=== PATIENT | male | born 1975 | race Caucasian/White ===

== ENCOUNTER 2023-01-05 16:53 | Inpatient (IN) ==
--- NOTE | 2023-01-05 18:11 | XRay Report ---
XR chest 1V not portable CLINICAL HISTORY: Chest pain, nonspecific TECHNIQUE: Single frontal radiograph of the chest was obtained. Comparison: None available at the time of this dictation. FINDINGS: No lines and tubes are seen. Cardiomegaly is noted. There is prominence and cephalization of the vasc ulature with Helder B lines seen. Superimposed mild alveolar edema cannot be entirely excluded. Possi ble mild left pleural effusion. IMPRESSION: Cardiomegaly with likely moderate pulmonary edema. ACT 112: Negative or not required by law. Electronically signed by: Tye Marquez M.D. 01/05/2023 6:10 PM
[2023-01-05 18:17] LABS: Influenza A virus by PCR Negative (Neg); Influenza B virus by PCR Negative (Neg); RSV by PCR Negative (Neg); SARS CoV2 RNA(COVID-19) Ceph NEGATIVE (Negative)
[2023-01-05 18:47] LABS: Basophils # (auto) 0.06 K/uL (0.00-0.20); Basophils % (auto) 0.5 %; Eosinophils # (auto) 0.16 K/uL (0.00-0.50); Eosinophils % (auto) 1.3 %; Hematocrit (blood only) 44.6 % (42.0-52.0); Hemoglobin 15.2 g/dl (14.0-18.0); Immature Granulocytes # (auto) 0.04 K/uL (0.01-0.20); Immature Granulocytes % (auto) 0.3 %; Lymphocytes # (auto) 2.57 K/uL (1.20-3.40); Lymphocytes % (auto) 21.7 %; Mean Corpuscular Hemoglobin 29.6 pg (25.0-34.0); Mean Corpuscular Hgb Conc 34.1 g/dL (32.0-36.0); Mean Corpuscular Volume 86.8 fL (80.0-100.0); Monocytes # (auto) 0.83 K/uL (0.11-0.59); Neutrophils # (auto) 8.21 K/uL (1.40-6.50); Neutrophils % (auto) 69.2 %; Platelet Count 297 K/uL (130-400); RDW Coefficient of Variation 13.2 % (11.5-14.5); RDW Standard Deviation 41.3 fL (36.4-46.3); Red Blood Count 5.14 M/uL (4.70-6.10); White Blood Count 11.87 K/ul (4.8-10.8)
[2023-01-05 19:05] LABS: Alanine Aminotransferase 106 U/L (7-52); Albumin Level 3.7 gm/dl (3.4-5.0); Alkaline Phosphatase 53 U/L (34-104); Anion Gap 5 (3-11); Aspartate Aminotransferase 52 U/L (13-39); BUN Creatinine Ratio 20.3 (10-20); Bilirubin,Total 0.6 mg/dl (0.2-1.0); Blood Urea Nitrogen 15 mg/dl (6-23); Calcium 9.5 mg/dl (8.6-10.3); Carbon Dioxide 26 mmol/L (21-32); Chloride 108 mmol/L (98-107); Est GFR (African American) 125.5 ml/min; Est GFR (Non-African American) 108.3 ml/min; Globulin 3.8 gm/dl (2.5-4.0); Glucose 138 mg/dl (70-99(Fasting)); Potassium 4.1 mmol/L (3.5-5.1); Sodium 139 mmol/L (136-145); Total Protein 7.5 gm/dl (6.0-8.3)
[2023-01-05 19:24] LABS: Troponin I High Sensitivity 197.6 pg/ml (0-20)
[2023-01-05 19:33] LABS: INR 1.1 (0.9-1.1); Partial Thromboplastin Ratio 0.9; Partial Thromboplastin Time 26.5 Seconds (21.0-31.0); Prothrombin Time 12.1 Seconds (9.0-12.0)
--- NOTE | 2023-01-05 19:51 | Emergency Department Note ---
Impression & Plan Congestive heart failure, Hypoxia, Shortness of breath ED Provider Note NAME: MASSIMO ACEVEDO AGE: 47 SEX: M : 1975 ARRIVES VIA: Walk-In INFORMANT: Patient ED PROVIDER(S): Darien Collazo DO CHIEF COMPLAINT: shortness of breath HPI: Patient is a 47-year-old male who presents to the ER for shortness of breath. Symptoms started for the past 2 weeks. Has been gradually getting worse. He denies any cough, congestion, or any new runny nose. No belly pain, nausea, vomiting, or diarrhea. No dysuria, urgency, or frequency. Admits to previous IV drug use but now just smokes marijuana. Denies any recent trips or travel. No coughing up blood. No history of blood clots or clotting disorders. He denies any chest pain. He notes the shortness of breath is worse when he lays flat. He does admit to a history of a previously bad heart. Family at bedside notes that has been breathing like this for several days. ADDITIONAL HISTORY OBTAINED: Per HPI Chronic Medical/Social Conditions Affecting Care: Per HPI PAST MEDICAL HISTORY:See Below PAST SURGICAL HISTORY:See Below FAMILY HISTORY:See Below SOCIAL HISTORY:See Below HOME MEDICATIONS:See Below ALLERGIES:See Below VITALS:See Below PHYSICAL EXAMINATION: GENERAL: Sitting up in bed, alert, dyspneic, mild distress, agitated yelling at nursing staff complaining about the getting an IV EYE EXAM: normal conjunctiva. OROPHARYNX: no exudate, no erythema, lips, buccal mucosa, and tongue normal and mucous membranes are moist NECK: supple, no nuchal rigidity, no adenopathy, non-tender LUNGS: Clear to auscultation. Normal chest wall mechanics HEART: no murmurs, S1 normal and S2 normal ABDOMEN: abdomen soft, non-tender, normo-active bowel sounds, no masses, no rebound or guarding. UPPER EXTREMITIES: upper extremities are grossly normal. LOWER EXTREMITIES: Calves are equal bilateral NEURO EXAM: Normal sensorium, cranial nerves II-XII grossly intact, normal speech, no gross weakness of arms, no gross weakness of legs. MEDICAL DECISION MAKING: Patient is a 47-year-old male who presents ER for above-stated complaint. IV was established blood work was obtained. Labs show mild leukocytosis of 11,000. No significant anemia. INR unremarkable. BMP was unremarkable. Troponin was elevated in the mid 100s. Mild transaminitis. TSH was unremarkable. COVID flu and RSV was negative. Initially on evaluation patient was very worked up and agitated. He was a hindrance to his own care. He was given 0.5 mg of Ativan. This did help him calm down slightly. About 2 hours later I was called to bedside following the CT angio of the chest which showed bilateral pleural effusions. Nursing staff noted that he was really tired and was requiring o xygen. On my evaluation he awakens to commands but is sluggish. He still oriented to person place or time. There is concern by staff that he may be using drugs in the room. We did take his belongings at bedside and placed them in a bag. He will be monitored closely for the remainder of his time in the ER. Patient was given Lasix and remained on nasal cannula. EKGs were not consistent with a STEMI but did show ST wave changes. Will defer to the hospitalist for further work-up. Patient notes that he does have a history of cardiac issues but is not sure what they are. Again at this time patient has no chest pain. He has been short of breath for 2 weeks. External Records Reviewed: None Consults/Care Managements Discussions: Per [facility] Triage Nursing notes reviewed. Limited review of prior medical records performed Vital Signs: reviewed and remarkable for no significant abnormalities Differential diagnosis: Differential diagnoses includes but is not limited to pneumonia, bronchitis, COPD/Asthma exacerbation, pneumothorax, pulmonary embolism, congestive heart failure, acute coronary syndrome ER treatment provided: See below Diagnostics interpreted by me include EKG and cardiac monitoring as listed below: -Cardiac Monitoring: An order was placed for continuous cardiac monitoring. The monitor shows a rate of 114 with sinus rhythm. -ECG: Sinus tachycardia rate of [address] depressions and T wave inversions in the high lateral leads Poor baseline ST depressions in the lateral lead EKG #2 Sinus tachycardia rate of 112 Left axis T wave inversions in the high lateral leads and ST depressions in the lateral leads -Laboratory studies:Interpreted by me as stated above in MDM and shown below. Imaging studies: Xrays: As interpreted by me: Portable AP upright 1 view of the chest shows no focal infiltrate CTs show: CT angio chest as described above shows no PE Procedures:none Critical Care: I have personally spent 33 minutes of critical care time in the direct management of this patient. This includes bedside care, interpretation of diagnostic studies, and testing, discussion with consultants, patient, and family members, and other required patient management activities. This 33 minutes is in excess of all separately billable procedures. Past Med/Surg History Social History Smoking Status: Current every day smoker Tobacco Type: Cigarettes Preferred Language: Setswana Feels Safe at Home: Yes Allergies Allergies Allergy/AdvReac Type Severity Reaction Status Date / Time No Known Allergies Allergy Unverified 01/05/23 22:41 Home Meds Home Medications Medication Instructions Recorded Confirmed acetaminophen 500 mg tablet 1,000 mg PO Q6H PRN Pain 01/05/23 01/05/23 (Tylenol Extra Strength) cholecalciferol (vitamin D3) 25 0 mcg PO DAILY 01/05/23 01/05/23 mcg (1,000 unit) tablet (Vitamin D3) ibuprofen 200 mg tablet 400 mg PO Q6H PRN Pain 01/05/23 01/05/23 Results & Data (ED) Vital Signs Vital Signs - 24 hr 01/05/23 17:19 01/05/23 20:00 01/05/23 19:42 Temperature 36.6 C Temperature Source Temporal Artery Scan Pulse Rate 104 H 108 H 117 H Pulse Rate [Apical] Respiratory Rate 16 26 H Respiratory Effort / Characteristics Non-Labored Respiratory Depth Normal Blood Pressure 147/84 H 157/92 H Blood Pressure [Right Arm] Blood Pressure Mean 105 113 Blood Pressure Mean [Right Arm] Pulse Oximetry 96 Oxygen Delivery Method Room Air Oxygen Flow Rate Sepsis Recent Fever Within 48 Hours No Sepsis New/Unexplained Change in Mental Status No Sepsis Action Taken by Nursing No Action Required 01/05/23 22:20 01/05/23 22:22 01/05/23 22:35 Temperature Temperature Source Pulse Rate 108 H Pulse Rate [Apical] 110 H Respiratory Rate 20 Respiratory Effort / Characteristics Non-Labored Spontaneous Respiratory Depth Normal Blood Pressure 184/129 H Blood Pressure [Right Arm] 152/103 H Blood Pressure Mean Blood Pressure Mean [Right Arm] 119 Pulse Oximetry 85 L 90 Oxygen Delivery Method Room Air Nasal Cannula Oxygen Flow Rate 3 Sepsis Recent Fever Within 48 Hours Sepsis New/Unexplained Change in Mental Status Sepsis Action Taken by Nursing Laboratory Data 01/05/23 18:33 01/05/23 18:33 Lab Results 01/05/23 01/05/23 01/05/23 Range/Units 17:23 18:33 18:33 WBC 11.87 H (4.8-10.8) K/ul RBC 5.14 (4.70-6.10) M/uL Hgb 15.2 (14.0-18.0) g/dl Hct 44.6 (42.0-52.0) % MCV 86.8 (80.0-100.0) fL MCH 29.6 (25.0-34.0) pg MCHC 34.1 (32.0-36.0) g/dL RDW Std Deviation 41.3 (36.4-46.3) fL RDW Coeff of Gil 13.2 (11.5-14.5) % Plt Count 297 (130-400) K/uL MPV 11.0 (9.4-12.4) fL Immature Gran % (Auto) 0.3 % Neut % (Auto) 69.2 % Lymph % (Auto) 21.7 % [place] % (Auto) 7.0 % Eos % (Auto) 1.3 % Baso % (Auto) 0.5 % Neut # (Auto) 8.21 H (1.40-6.50) K/uL Lymph # (Auto) 2.57 (1.20-3.40) K/uL [place] # (Auto) 0.83 H (0.11-0.59) K/uL Eos # (Auto) 0.16 (0.00-0.50) K/uL Baso # (Auto) 0.06 (0.00-0.20) K/uL Immature Gran # (Auto) 0.04 (0.01-0.20) K/uL PT 12.1 H (9.0-12.0) Seconds INR 1.1 (0.9-1.1) APTT 26.5 (21.0-31.0) Seconds PTT Ratio 0.9 ABG pH (7.35-7.45) ABG pCO2 (35-46) mmHg ABG pO2 (80-95) mmHg ABG HCO3 (19-24) mmol/L ABG O2 Saturation (90-95) % ABG Base Excess (-9-1.8) mEq/L Jacob Test (Pos) Oxygen Given Sodium (136-145) mmol/L Potassium (3.5-5.1) mmol/L Chloride (98-107) mmol/L Carbon Dioxide (21-32) mmol/L Anion Gap (3-11) BUN (6-23) mg/dl Creatinine (0.6-1.4) mg/dl Est Cr Clr Drug Dosing Est GFR ( Amer) ml/min Est GFR (Non-Af Amer) ml/min BUN/Creatinine Ratio (10-20) Glucose (70-99(Fasting)) mg/dl Calcium (8.6-10.3) mg/dl Magnesium (1.7-2.4) mg/dl Total Bilirubin (0.2-1.0) mg/dl AST (13-39) U/L ALT (7-52) U/L Alkaline Phosphatase (34-104) U/L Troponin I High Sens (0-20) pg/ml B-Natriuretic Peptide (0-100) pg/ml Total Protein (6.0-8.3) gm/dl Albumin (3.4-5.0) gm/dl Globulin (2.5-4.0) gm/dl Albumin/Globulin Ratio (0.9-2) TSH (0.300-4.500) uIu/ml SARS-CoV-2 (PCR) NEGATIVE (Negative) Influenza Type A (PCR) Negative (Neg) Influenza Type B (PCR) Negative (Neg) RSV (RT-PCR) Negative (Neg) 01/05/23 01/05/23 01/05/23 Range/Units 18:33 18:33 18:33 WBC (4.8-10.8) K/ul RBC (4.70-6.10) M/uL Hgb (14.0-18.0) g/dl Hct (42.0-52.0) % MCV (80.0-100.0) fL MCH (25.0-34.0) pg MCHC (32.0-36.0) g/dL RDW Std Deviation (36.4-46.3) fL RDW Coeff of Gil (11.5-14.5) % Plt Count (130-400) K/uL MPV (9.4-12.4) fL Immature Gran % (Auto) % Neut % (Auto) % Lymph % (Auto) % [place] % (Auto) % Eos % (Auto) % Baso % (Auto) % Neut # (Auto) (1.40-6.50) K/uL Lymph # (Auto) (1.20-3.40) K/uL [place] # (Auto) (0.11-0.59) K/uL Eos # (Auto) (0.00-0.50) K/uL Baso # (Auto) (0.00-0.20) K/uL Immature Gran # (Auto) (0.01-0.20) K/uL PT (9.0-12.0) Seconds INR (0.9-1.1) APTT (21.0-31.0) Seconds PTT Ratio ABG pH (7.35-7.45) ABG pCO2 (35-46) mmHg ABG pO2 (80-95) mmHg ABG HCO3 (19-24) mmol/L ABG O2 Saturation (90-95) % ABG Base Excess (-9-1.8) mEq/L Jacob Test (Pos) Oxygen Given Sodium 139 (136-145) mmol/L Potassium 4.1 (3.5-5.1) mmol/L Chloride 108 H (98-107) mmol/L Carbon Dioxide 26 (21-32) mmol/L Anion Gap 5 (3-11) BUN 15 (6-23) mg/dl Creatinine 0.74 (0.6-1.4) mg/dl Est Cr Clr Drug Dosing Not Reportable Est GFR ( Amer) 125.5 ml/min Est GFR (Non-Af Amer) 108.3 ml/min BUN/Creatinine Ratio 20.3 H (10-20) Glucose 138 H (70-99(Fasting)) mg/dl Calcium 9.5 (8.6-10.3) mg/dl Magnesium 1.9 (1.7-2.4) mg/dl Total Bilirubin 0.6 (0.2-1.0) mg/dl AST 52 H (13-39) U/L ALT 106 H (7-52) U/L Alkaline Phosphatase 53 (34-104) U/L Troponin I High Sens 197.6 H* (0-20) pg/ml B-Natriuretic Peptide 1585 H (0-100) pg/ml Total Protein 7.5 (6.0-8.3) gm/dl Albumin 3.7 (3.4-5.0) gm/dl Globulin 3.8 (2.5-4.0) gm/dl Albumin/Globulin Ratio 1.0 (0.9-2) TSH 1.339 (0.300-4.500) uIu/ml SARS-CoV-2 (PCR) (Negative) Influenza Type A (PCR) (Neg) Influenza Type B (PCR) (Neg) RSV (RT-PCR) (Neg) 01/05/23 01/05/23 Range/Units 19:55 22:42 WBC (4.8-10.8) K/ul RBC (4.70-6.10) M/uL Hgb (14.0-18.0) g/dl Hct (42.0-52.0) % MCV (80.0-100.0) fL MCH (25.0-34.0) pg MCHC (32.0-36.0) g/dL RDW Std Deviation (36.4-46.3) fL RDW Coeff of Gil (11.5-14.5) % Plt Count (130-400) K/uL MPV (9.4-12.4) fL Immature Gran % (Auto) % Neut % (Auto) % Lymph % (Auto) % [place] % (Auto) % Eos % (Auto) % Baso % (Auto) % Neut # (Auto) (1.40-6.50) K/uL Lymph # (Auto) (1.20-3.40) K/uL [place] # (Auto) (0.11-0.59) K/uL Eos # (Auto) (0.00-0.50) K/uL Baso # (Auto) (0.00-0.20) K/uL Immature Gran # (Auto) (0.01-0.20) K/uL PT (9.0-12.0) Seconds INR (0.9-1.1) APTT (21.0-31.0) Seconds PTT Ratio ABG pH 7.43 (7.35-7.45) ABG pCO2 35 (35-46) mmHg ABG pO2 86 (80-95) mmHg ABG HCO3 23 (19-24) mmol/L ABG O2 Saturation 98.2 H (90-95) % ABG Base Excess -0.6 (-9-1.8) mEq/L Jacob Test Pos (Pos) Oxygen Given RA Sodium (136-145) mmol/L Potassium (3.5-5.1) mmol/L Chloride (98-107) mmol/L Carbon Dioxide (21-32) mmol/L Anion Gap (3-11) BUN (6-23) mg/dl Creatinine (0.6-1.4) mg/dl Est Cr Clr Drug Dosing Est GFR ( Amer) ml/min Est GFR (Non-Af Amer) ml/min BUN/Creatinine Ratio (10-20) Glucose (70-99(Fasting)) mg/dl Calcium (8.6-10.3) mg/dl Magnesium (1.7-2.4) mg/dl Total Bilirubin (0.2-1.0) mg/dl AST (13-39) U/L ALT (7-52) U/L Alkaline Phosphatase (34-104) U/L Troponin I High Sens 179.5 H* (0-20) pg/ml B-Natriuretic Peptide (0-100) pg/ml Total Protein (6.0-8.3) gm/dl Albumin (3.4-5.0) gm/dl Globulin (2.5-4.0) gm/dl Albumin/Globulin Ratio (0.9-2) TSH (0.300-4.500) uIu/ml SARS-CoV-2 (PCR) (Negative) Influenza Type A (PCR) (Neg) Influenza Type B (PCR) (Neg) RSV (RT-PCR) (Neg) Administered Medications Miscellaneous (Patient's Height &/Or Weight Needed) 1 each N/A Q2H AAMIR Stop: 02/04/23 21:59 Last Admin: 01/05/23 22:43 Dose: 1 each Documented By: MARGARET Discontinued Medications Aspirin (Aspirin Chew 324 Mg) 324 mg PO NOW STA Stop: 01/05/23 21:29 Last Admin: 01/05/23 22:39 Dose: 324 mg Documented By: MARGARET Furosemide (Furosemide 40 Mg/4 Ml Vial) 40 mg IV NOW STA Stop: 01/05/23 21:29 Last Admin: 01/05/23 22:37 Dose: 40 mg Documented By: MARGARET Ioversol (Optiray 320 500ml) 113 ml IV ONCE ONE Stop: 01/05/23 20:44 Last Admin: 01/05/23 20:43 Dose: 113 ml Documented By: BAMBI Lorazepam (Lorazepam 2 Mg/1 Ml Vial) 0.5 mg IV NOW STA Stop: 01/05/23 20:06 Last Admin: 01/05/23 20:09 Dose: 0.5 mg Documented By: MARGARET Metoprolol Tartrate (Metoprolol Tartrate 1 Mg/Ml Vial) 2.5 mg IV NOW STA Stop: 01/05/23 21:51 Last Admin: 01/05/23 22:35 Dose: 2.5 mg Documented By: MARGARET Miscellaneous Information (Patient's Allergy Info Needs Entered) 1 each N/A Q30M AAMIR Stop: 02/04/23 21:59 Last Admin: 01/05/23 22:43 Dose: 1 each Documented By: MARGARET Imaging Data Radiologist's Impression: Chest X-Ray 01/05/23 17:22 XR chest 1V not portable CLINICAL HISTORY: Chest pain, nonspecific TECHNIQUE: Single frontal radiograph of the chest was obtained. Comparison: None available at the time of this dictation. FINDINGS: No lines and tubes are seen. Cardiomegaly is noted. There is prominence and cephalization of the vasculature with Helder B lines seen. Superimposed mild alveolar edema cannot be entirely excluded. Possible mild left pleural effusion. IMPRESSION: Cardiomegaly with likely moderate pulmonary edema. ACT 112: Negative or not required by law. Electronically signed by: Tye Marquez M.D. 01/05/2023 6:10 PM Chest CTA 01/05/23 19:48 Exam(s): CTA CHEST IV Amt: 113ML OPTIRAY 320 EXAM: CT Angiography Chest With Intravenous Contrast CLINICAL HISTORY: Reason for exam: PE. TECHNIQUE: Axial computed tomographic angiography images of the chest with intravenous contrast. CTDI is 37 mGy and DLP is 919.12 mGy-cm. Automated exposure control was utilized for the study. A dose lowering technique was utilized adhering to the principles of ALARA. MIP reconstructed images were created and reviewed. COMPARISON: No relevant prior studies available. FINDINGS: Pulmonary arteries: Unremarkable. No acute pulmonary embolism. Aorta: Atherosclerotic changes of the aorta. No thoracic aortic aneurysm. Lungs: See below. Pleural space: Small RIGHT and trace LEFT pleural effusions. Mild pulmonary edema. Cardiomegaly. Findings are consistent with congestive heart failure. No pneumothorax. Heart: See above. Mediastinum: Prominent mediastinal and hilar lymphadenopathy which is limited in evaluation due to lack of contrast. If there is any history of malignancy, consider PET/CT scan for further evaluation. Bones/joints: Degenerative changes of the spine. No acute fracture. No dislocation. Soft tissues: Unremarkable. Lymph nodes: Unremarkable. No enlarged lymph nodes. IMPRESSION: 1. No acute pulmonary embolism. 2. Small RIGHT and trace LEFT pleural effusions. Mild pulmonary edema. Cardiomegaly. Findings are consistent with congestive heart failure. 3. Prominent mediastinal and hilar lymphadenopathy which is limited in evaluation due to lack of contrast. If there is any history of malignancy, consider PET/CT scan for further evaluation. Electronically signed by: Ghanshyam Amin MD 01/05/23 21:15 PM Discharge Plan Visit Data Chief Complaint: Shortness of Breath/Dyspnea Stated Complaint: SOB ED Provider: Darien Collazo Discharge Problem: Congestive heart failure, Hypoxia, Shortness of breath Forms Stand Alone Forms: [employer] games Prescriptions Prescriptions: No Action acetaminophen [Tylenol Extra Strength] 500 mg Tablet 1,000 mg PO Q6H PRN (Reason: Pain) ibuprofen 200 mg Tablet 400 mg PO Q6H PRN (Reason: Pain) cholecalciferol (vitamin D3) [Vitamin D3] 25 mcg (1,000 unit) Tablet 0 mcg PO DAILY Referrals Referrals: PCP,NO [Primary Care Provider] -
[2023-01-05] MEDS ORDERED: LORazepam 2 MG/1 ML VIAL IV STA ×3 (20:05→23:12)
[2023-01-05] MEDS ORDERED: OPTIRAY 320 500ml IV ONE (20:43)
[2023-01-05 21:04] LABS: Troponin I High Sensitivity 179.5 pg/ml (0-20)
--- NOTE | 2023-01-05 21:16 | CT Scan Report ---
Exam(s): CTA CHEST IV Amt: 113ML OPTIRAY 320 EXAM: CT Angiography Chest With Intravenous Contrast CLINICAL HISTORY: Reason for exam: PE. TECHNIQUE: Axial computed tomographic angiography images of the chest with intravenous contrast. CTDI is 37 mGy and DLP is 919.12 mGy-cm. Automated exposure control was utilized for the study. A dose lowering technique was utilized adhering to the principles of ALARA. MIP reconstructed images were created and reviewed. COMPARISON: No relevant prior studies available. FINDINGS: Pulmonary arteries: Unremarkable. No acute pulmonary embolism. Aorta: Atherosclerotic changes of the aorta. No thoracic aortic aneurysm. Lungs: See below. Pleural space: Small RIGHT and trace LEFT pleural effusions. Mild pulmonary edema. Cardiomegaly. Findings are consistent with congestive heart failure. No pneumothorax. Heart: See above. Mediastinum: Prominent mediastinal and hilar lymphadenopathy which is limited in evaluation due to lack of contrast. If there is any history of malignancy, consider PET/CT scan for further evaluation. Bones/joints: Degenerative changes of the spine. No acute fracture. No dislocation. Soft tissues: Unremarkable. Lymph nodes: Unremarkable. No enlarged lymph nodes. IMPRESSION: 1. No acute pulmonary embolism. 2. Small RIGHT and trace LEFT pleural effusions. Mild pulmonary edema. Cardiomegaly. Findings are consistent with congestive heart failure. 3. Prominent mediastinal and hilar lymphadenopathy which is limited in evaluation due to lack of contrast. If there is any history of malignancy, consider PET/CT scan for further evaluation. Electronically signed by: Ghanshyam Amin MD 01/05/23 21:15 PM
[2023-01-05] MEDS ORDERED: FUROSEMIDE 40 MG/4 ML VIAL IV STA (21:28)
[2023-01-05] MEDS ORDERED: ASPIRIN CHEW 324 MG PO STA (21:28)
[2023-01-05] MEDS ORDERED: XOPENEX/ATROVENT 1.25mg/0.5MG NEB COMBO NEB STA (21:50)
[2023-01-05] MEDS ORDERED: METOPROLOL TARTRATE 1 MG/ML VIAL IV STA (21:50)
[2023-01-05] MEDS ORDERED: IPRATROPIUM BROMIDE NEB SOLN 0.02% 2.5 ML VIAL INH STA (21:51)
[2023-01-05] MEDS ORDERED: LEVALBUTEROL 1.25 MG/3 ML NEB NEB STA (21:51)
[2023-01-05] MEDS ORDERED: Patient's ALLERGY Info needs ENTERED SCH (22:00)
[2023-01-05 22:23] LABS: Magnesium 1.9 mg/dl (1.7-2.4)
[2023-01-05 22:38] LABS: Thyroid Stimulating Hormone 1.339 uIu/ml (0.300-4.500)
[2023-01-05] MEDS: Patient's HEIGHT &/or WEIGHT Needed SCH (22:43)
[2023-01-05 22:47] LABS: Base Excess ABG -0.6 mEq/L (-9-1.8); HCO3 ABG 23 mmol/L (19-24); Oxygen Saturation ABG 98.2 % (90-95); PCO2 ABG 35 mmHg (35-46); PO2 ABG 86 mmHg (80-95); pH ABG 7.43 (7.35-7.45)
[2023-01-05 22:53] LABS: Allen Test Pos (Pos)
[2023-01-05] MEDS ORDERED: DOXYCYCLINE HYCLATE 100 MG in DEXTROSE 5% MINI-B 100 ML IV STA (23:12)
--- NOTE | 2023-01-05 23:14 | History & Physical Report ---
Date of Service January 05, 2023 Assessment & Plan (1) Acute hypoxemic respiratory failure: Plan: Multifactorial New onset heart failure Complicated bronchitis, possible sepsis HTN, likely chronic BP elevation given cardiomegaly on imaging Abnormal LFTs possibly from passive hepatic congestion rule out other abnormalities given patient abdominal pain complaints congenital heart disease status post surgery anxiety disorder, suboptimal, patient not on maintenance medications LUE osteomyelitis status post antibiotic Rx, patient unable to give details Hyperglycemia rule out DM ongoing tobacco abuse PCU Supplemental O2 Baseline ABG Diuretic Rx Strict I/Os, daily weights, CHF education CS, Doxycycline, nebs for complicated bronchitis Initiate low-dose steroid course if oxygenation does not improve Initiate beta-jesús for BP control and CHF TTE, Cardiology consult Re: CHF Follow LFTs, CT abdomen pelvis, check UA Check hemoglobin A1c Nicotine patch DVT prophylaxis. Lovenox subcu Full code Total critical care time was 40 minutes. Text document was generated using [employer] voice recognition software. It may contain grammatical or spelling errors. Kindly contact undersigned for clarification of any documentation item in question. History of Present Illness Chief Complaint: Shortness of breath Primary Care Provider: NO PCP History obtained from patient and records. Medical history significant for congenital heart disease status post surgery, anxiety disorder, LUE osteomyelitis status post antibiotic Rx, ongoing tobacco abuse. 2 weeks history of shortness of breath, fluid retention, orthopnea symptoms. Junky cough symptoms. Not sure about sick contacts, has not received COVID-19 vaccination. Denies aspiration. Chest pain from pounding on his chest. Achy abdominal pain without constipation/diarrhea symptoms. Denies recent EtOH intake Denies headache symptoms. IV Lasix administered at the ER for CHF. Lowest O2 sats of 85 on room air documented at the ER. 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 Allergies Allergy/AdvReac Type Severity Reaction Status Date / Time No Known Allergies Allergy Unverified 01/05/23 22:41 Home Medications Medication Instructions Recorded Confirmed Type acetaminophen 500 mg tablet 1,000 mg PO Q6H PRN Pain 01/05/23 01/05/23 History (Tylenol Extra Strength) cholecalciferol (vitamin D3) 25 0 mcg PO DAILY 01/05/23 01/05/23 History mcg (1,000 unit) tablet (Vitamin D3) ibuprofen 200 mg tablet 400 mg PO Q6H PRN Pain 01/05/23 01/05/23 History Past Med/Surg History Social History Smoking Status: Current every day smoker Tobacco Type: E-cigarettes / Vaping Hx Alcohol Use: No Hx Substance Use: Yes Last Used Substance: Days (ago) Preferred Language: Khmer Communication Ability: Effective Cupola Man Required: No Beliefs That Will Affect Care: None Current Living Situation: Other Current Living Situation Comment: friend arie and her mother ' they are very nice to me' Other Information That Helps Us Care for You: No Feels Safe at Home: Yes Safety Concerns: Feels Safe At This Time Assistive Devices: None Review of Systems Review of Systems: As per HPI, all other systems reviewed and negative Physical Exam Physical Exam: GENERAL: uncomfortable, anxious, looks older than stated age, respiratory distress SKIN: Normal color, warm HEENT: [place] palpebral conjunctivae, no ptosis, dry buccal mucosa, nasal cannula in place NECK : Supple, JVD noted, no tenderness CHEST : Decreased breath sounds, no tenderness HEART : Tachycardic, systolic murmur ABDOMEN: Some distention, nontender EXTREMITIES : Minimal LE swelling, no LE tenderness, no other conspicuous deformities noted NEUROLOGIC : Coherent, no facial asymmetry, no other gross focality Results & Data Results & Data Vital Signs (Past 12 Hours) Vital Signs Temp Pulse Pulse Resp BP BP Pulse Ox 01/05/23 22:35 108 H 184/129 H 01/05/23 22:22 90 01/05/23 22:20 110 H 20 152/103 H 85 L 01/05/23 19:42 117 H 01/05/23 20:00 108 H 26 H 157/92 H 01/05/23 17:19 36.6 C 104 H 16 147/84 H 96 O2 Del Method O2 Flow Rate 01/05/23 22:35 01/05/23 22:22 Nasal Cannula 3 01/05/23 22:20 Room Air 01/05/23 19:42 01/05/23 20:00 01/05/23 17:19 Room Air Laboratory Results Laboratory Results WBC 11.87 K/ul (4.8-10.8) H 01/05/23 18:33 RBC 5.14 M/uL (4.70-6.10) 01/05/23 18:33 Hgb 15.2 g/dl (14.0-18.0) 01/05/23 18: Hct 44.6 % (42.0-52.0) 01/05/23 18: MCV 86.8 fL (80.0-100.0) 01/05/23 18: MCH 29.6 pg (25.0-34.0) 01/05/23 18: MCHC 34.1 g/dL (32.0-36.0) 01/05/23 18: RDW Std Deviation 41.3 fL (36.4-46.3) 01/05/23 18: RDW Coeff of Gil 13.2 % (11.5-14.5) 01/05/23 18: Plt Count 297 K/uL (130-400) 01/05/23 18: MPV 11.0 fL (9.4-12.4) 01/05/23 18: Immature Gran % (Auto) 0.3 % 01/05/23 18: Neut % (Auto) 69.2 % 01/05/23 18: Lymph % (Auto) 21.7 % 01/05/23 18: [place] % (Auto) 7.0 % 01/05/23 18: Eos % (Auto) 1.3 % 01/05/23 18: Baso % (Auto) 0.5 % 01/05/23 18:33 Neut # (Auto) 8.21 K/uL (1.40-6.50) H 01/05/23 18: Lymph # (Auto) 2.57 K/uL (1.20-3.40) 01/05/23 18: [place] # (Auto) 0.83 K/uL (0.11-0.59) H 01/05/23 18: Eos # (Auto) 0.16 K/uL (0.00-0.50) 01/05/23 18: Baso # (Auto) 0.06 K/uL (0.00-0.20) 01/05/23 18: Immature Gran # (Auto) 0.04 K/uL (0.01-0.20) 01/05/23 18: PT 12.1 Seconds (9.0-12.0) H 01/05/23 18:33 INR 1.1 (0.9-1.1) 01/05/23 18:33 APTT 26.5 Seconds (21.0-31.0) 01/05/23 18:33 PTT Ratio 0.9 01/05/23 18:33 ABG pH 7.43 (7.35-7.45) 01/05/23 22:42 ABG pCO2 35 mmHg (35-46) 01/05/23 22:42 ABG pO2 86 mmHg (80-95) 01/05/23 22:42 ABG HCO3 23 mmol/L (19-24) 01/05/23 22:42 ABG O2 Saturation 98.2 % (90-95) H 01/05/23 22:42 ABG Base Excess -0.6 mEq/L (-9-1.8) 01/05/23 22:42 Jacob Test Pos (Pos) 01/05/23 22:42 Oxygen Given RA 01/05/23 22:42 Sodium 139 mmol/L (136-145) 01/05/23 18:33 Potassium 4.1 mmol/L (3.5-5.1) 01/05/23 18:33 Chloride 108 mmol/L (98-107) H 01/05/23 18:33 Carbon Dioxide 26 mmol/L (21-32) 01/05/23 18:33 Anion Gap 5 (3-11) 01/05/23 18:33 BUN 15 mg/dl (6-23) 01/05/23 18:33 Creatinine 0.74 mg/dl (0.6-1.4) 01/05/23 18:33 Est Cr Clr Drug Dosing Not Reportable 01/05/23 18:33 Est GFR ( Amer) 125.5 ml/min 01/05/23 18:33 Est GFR (Non-Af Amer) 108.3 ml/min 01/05/23 18:33 BUN/Creatinine Ratio 20.3 (10-20) H 01/05/23 18:33 Glucose 138 mg/dl (70-99(Fasting)) H 01/05/23 18:33 Calcium 9.5 mg/dl (8.6-10.3) 01/05/23 18:33 Magnesium 1.9 mg/dl (1.7-2.4) 01/05/23 18:33 Total Bilirubin 0.6 mg/dl (0.2-1.0) 01/05/23 18:33 AST 52 U/L (13-39) H 01/05/23 18:33 ALT 106 U/L (7-52) H 01/05/23 18:33 Alkaline Phosphatase 53 U/L (34-104) 01/05/23 18:33 Troponin I High Sens 179.5 pg/ml (0-20) H* 01/05/23 19:55 B-Natriuretic Peptide 1585 pg/ml (0-100) H 01/05/23 18:33 Total Protein 7.5 gm/dl (6.0-8.3) 01/05/23 18:33 Albumin 3.7 gm/dl (3.4-5.0) 01/05/23 18:33 Globulin 3.8 gm/dl (2.5-4.0) 01/05/23 18:33 Albumin/Globulin Ratio 1.0 (0.9-2) 01/05/23 18:33 TSH 1.339 uIu/ml (0.300-4.500) 01/05/23 18:33 SARS-CoV-2 (PCR) NEGATIVE (Negative) 01/05/23 17:23 Influenza Type A (PCR) Negative (Neg) 01/05/23 17:23 Influenza Type B (PCR) Negative (Neg) 01/05/23 17:23 RSV (RT-PCR) Negative (Neg) 01/05/23 17:23 Impressions Chest X-Ray 01/05/23 17:22 XR chest 1V not portable CLINICAL HISTORY: Chest pain, nonspecific TECHNIQUE: Single frontal radiograph of the chest was obtained. Comparison: None available at the time of this dictation. FINDINGS: No lines and tubes are seen. Cardiomegaly is noted. There is prominence and cephalization of the vasculature with Helder B lines seen. Superimposed mild alveolar edema cannot be entirely excluded. Possible mild left pleural effusion. IMPRESSION: Cardiomegaly with likely moderate pulmonary edema. ACT 112: Negative or not required by law. Electronically signed by: Tye Marquez M.D. 01/05/2023 6:10 PM Chest CTA 01/05/23 19:48 Exam(s): CTA CHEST IV Amt: 113ML OPTIRAY 320 EXAM: CT Angiography Chest With Intravenous Contrast CLINICAL HISTORY: Reason for exam: PE. TECHNIQUE: Axial computed tomographic angiography images of the chest with intravenous contrast. CTDI is 37 mGy and DLP is 919.12 mGy-cm. Automated exposure control was utilized for the study. A dose lowering technique was utilized adhering to the principles of ALARA. MIP reconstructed images were created and reviewed. COMPARISON: No relevant prior studies available. FINDINGS: Pulmonary arteries: Unremarkable. No acute pulmonary embolism. Aorta: Atherosclerotic changes of the aorta. No thoracic aortic aneurysm. Lungs: See below. Pleural space: Small RIGHT and trace LEFT pleural effusions. Mild pulmonary edema. Cardiomegaly. Findings are consistent with congestive heart failure. No pneumothorax. Heart: See above. Mediastinum: Prominent mediastinal and hilar lymphadenopathy which is limited in evaluation due to lack of contrast. If there is any history of malignancy, consider PET/CT scan for further evaluation. Bones/joints: Degenerative changes of the spine. No acute fracture. No dislocation. Soft tissues: Unremarkable. Lymph nodes: Unremarkable. No enlarged lymph nodes. IMPRESSION: 1. No acute pulmonary embolism. 2. Small RIGHT and trace LEFT pleural effusions. Mild pulmonary edema. Cardiomegaly. Findings are consistent with congestive heart failure. 3. Prominent mediastinal and hilar lymphadenopathy which is limited in evaluation due to lack of contrast. If there is any history of malignancy, consider PET/CT scan for further evaluation. Electronically signed by: Ghanshyam Amin MD 01/05/23 21:15 PM Diagnostic Findings EKG as per my interpretation : Rate 110, sinus tachycardia, LAD, LAFB, LVH T wave inversion lateral leads
[2023-01-05] MEDS ORDERED: NICOTINE 21 MG/24 HR TDSY TD STA (23:16)
[2023-01-05] MEDS ORDERED: hydrOXYzine HCl 10 MG TAB PO PRN (23:20)
[2023-01-05] MEDS ORDERED: PROMETHAZINE HCL 6.25 MG in SODIUM CHLORIDE 0.9% 50 ML IV PRN (23:20)
[2023-01-05] MEDS ORDERED: ACETAMINOPHEN 500 MG TAB PO PRN (23:20)
[2023-01-05] MEDS ORDERED: oxyCODONE HCL IR 5 MG TAB (IMMEDIATE RELEASE) PO PRN (23:20)
[2023-01-05 23:52] LABS: Appearance Urine Clear (Clear); Bilirubin Urine Negative (Negative); Blood Urine Negative (Negative); Color Urine Yellow; Glucose Urine UA Negative (Negative); Ketones Urine Negative (Negative); Leukocyte Esterase Urine Negative (Negative); Nitrite Urine Negative (Negative); Protein Urine Negative (Negative); Specific Gravity Urine 1.024 (1.000-1.030); Urobilinogen Urine Negative (Negative); pH Urine 5.5 (4.5-7.5)
[2023-01-06 00:22] LABS: Amphetamines+Metham, Urine Neg (Neg); Barbiturates, Urine Neg (Neg); Benzodiazepine, Urine Neg (Neg); Cocaine, Urine Neg (Neg); MDMA (Ecstacy), Urine Neg (Neg); Methadone, Urine Neg (Neg); Opiate, Urine Neg (Neg); Phencyclidine, Urine Neg (Neg)
[2023-01-06] MEDS: Patient's HEIGHT &/or WEIGHT Needed SCH (01:18)
[2023-01-06] MEDS ORDERED: NITROGLYCERIN SL 0.4 MG/TAB TAB SL PRN (02:02)
[2023-01-06] MEDS ORDERED: MAGNESIUM SULFATE / D5W 1 GM/100 ML BAG IV ONE (02:22)
[2023-01-06 04:43] LABS: Basophils # (auto) 0.07 K/uL (0.00-0.20); Basophils % (auto) 0.5 %; Eosinophils # (auto) 0.18 K/uL (0.00-0.50); Eosinophils % (auto) 1.3 %; Hematocrit (blood only) 45.6 % (42.0-52.0); Hemoglobin 15.7 g/dl (14.0-18.0); Immature Granulocytes # (auto) 0.07 K/uL (0.01-0.20); Immature Granulocytes % (auto) 0.5 %; Lymphocytes # (auto) 3.03 K/uL (1.20-3.40); Lymphocytes % (auto) 22.2 %; Mean Corpuscular Hemoglobin 29.6 pg (25.0-34.0); Mean Corpuscular Hgb Conc 34.4 g/dL (32.0-36.0); Mean Corpuscular Volume 85.9 fL (80.0-100.0); Mean Platelet Volume 10.8 fL (9.4-12.4); Monocytes # (auto) 0.85 K/uL (0.11-0.59); Monocytes % (auto) 6.2 %; Neutrophils # (auto) 9.46 K/uL (1.40-6.50); Neutrophils % (auto) 69.3 %; Platelet Count 308 K/uL (130-400); RDW Coefficient of Variation 13.3 % (11.5-14.5); RDW Standard Deviation 41.1 fL (36.4-46.3); Red Blood Count 5.31 M/uL (4.70-6.10); White Blood Count 13.66 K/ul (4.8-10.8)
[2023-01-06 05:00] LABS: Albumin Level 3.9 gm/dl (3.4-5.0); BUN Creatinine Ratio 24.6 (10-20); Bilirubin,Total 0.8 mg/dl (0.2-1.0); Calcium 9.3 mg/dl (8.6-10.3); Creatinine Clr Calc Pharmacy 153.3 ml/min; Est GFR (African American) 135.9 ml/min; Est GFR (Non-African American) 117.3 ml/min; Potassium 3.8 mmol/L (3.5-5.1); Total Protein 7.9 gm/dl (6.0-8.3)
[2023-01-06 07:43] LABS: Estimated Average Glucose 128 mg/dl; Hemoglobin A1C 6.1 % (4.5-5.6)
--- NOTE | 2023-01-06 08:32 | Cardiology Consultation ---
Date of Consultation January 06, 2023 Assessment & Plan (1) Congestive heart failure: (2) Acute hypoxemic respiratory failure: (3) Acute on chronic heart failure with reduced ejection fraction and diastolic dysfunction: Plan Patient seen/examined today in collaboration with Dr. Hendrix. See supervising physician's documentation for recommendations and plan of care. Supervising Physician Co-Signing Physician Notes Pt seen and examined with [facility] staff Concur with observations and plans 47 yo man presenting with dyspnea + cough x 2 weeks Dx: respiratory failure + Hypoxia * Hx of congenital heart disease s/p surgery * Anatomy - unknown * COVID negative * Flu negative * No outpatient meds * Chronic smoking * Troponin - elevated * BNP 1585 * CXR - cardiomegaly - no sternal wires - no hardware noted - pulmonary vascular congestion c/w CHF * CT: personally reviewed - + apical bullae, ground glass c/w CHF. No PE. No clear infiltrates Plans: * Pt is in acute decompensated CHF * Air hunger noted * Elevated JVP * ECHOcardiogram - reviewed - severely reduced LVEF - LVEF <20%; Significant MR. + AI (making IABP challenging). * LV with deep crypts - concern for LV noncompaction. Formal read is pending * Plans for BiPAP * Plans for Lasix 200 mg IV x 1 * Check Lactate * [facility] * Patient may require mechanical circulatory support * Transfer to critical care team Chuy Hendrix History of Present Illness Reason for Consultation: SOB; Possible CHF Requesting Physician: Dr. Barnett Attending Physician: Dr. Hendrix History of Present Illness Patient is a 47 year old male who presented to ER with complaints of SOB x2 weeks with cough. Found to be hypoxic in ER with b/l pleural effusions. Records reviewed. History of congenital heart disease s/p surgery (specifics unknown), anxiety, history of LUE osteomyelitis s/p antibiotic tx, tobacco abuse. He takes no outpatient medications on a regular basis. Apparently he was very agitated on admission and treated with Ativan. He then became sluggish. Concerns for taking drugs in his room and belongings confiscated. Tox screen + for marijuana. On arrival WBC minimally elevated. LFT's minimally elevated. HS troponin slightly elevated at 197 on admission and repeat 179. BNP elevated at 1585. EKG on admission, poor tracing with significant artifact - Sinus tachycardia with LVH with possible strain pattern, T wave inversions in lateral leads. No prior for comparison. Chest xray with small pleural effusions and pulm edema. Chest CT without PE, but with findings of pulm vascular congestion and lymphadenopathy. He was started on Furosemide IV for CHF, Antibiotics Also started on metoprolol tartrate for HR/BP support. Allergies Allergy/AdvReac Type Severity Reaction Status Date / Time No Known Allergies Allergy Unverified 01/05/23 22:41 Home Medications Medication Instructions Recorded Confirmed Type acetaminophen 500 mg tablet 1,000 mg PO Q6H PRN Pain 01/05/23 01/05/23 History (Tylenol Extra Strength) cholecalciferol (vitamin D3) 25 0 mcg PO DAILY 01/05/23 01/05/23 History mcg (1,000 unit) tablet (Vitamin D3) ibuprofen 200 mg tablet 400 mg PO Q6H PRN Pain 01/05/23 01/05/23 History Patient History Social History Smoking Status: Current every day smoker Tobacco Type: E-cigarettes / Vaping Hx Alcohol Use: No Hx Substance Use: Yes Last Used Substance: Days (ago) Preferred Language: Kazakh Communication Ability: Effective Ghost Writer Required: No Beliefs That Will Affect Care: None Current Living Situation: Other Current Living Situation Comment: friend arie and her mother ' they are very nice to me' Other Information That Helps Us Care for You: No Feels Safe at Home: Yes Safety Concerns: Feels Safe At This Time Assistive Devices: None Review of Systems Review of Systems: All systems reviewed & are unremarkable except as noted in HPI & below Results & Data Vital Signs (Past 12 Hours) Vital Signs Temp Pulse Pulse Resp BP BP Pulse Ox 01/06/23 06:36 36.5 C 103 H 23 151/86 H 96 01/06/23 05:36 109 H 24 148/102 H 93 01/06/23 04:00 108 H 18 96 01/06/23 03:56 01/06/23 01:26 106 H 01/06/23 01:17 101 H 94 01/05/23 22:50 95 H 01/06/23 00:31 105 H 30 H 131/76 01/06/23 00:29 109 H 23 148/95 H 01/05/23 23:34 94 H 20 98 01/05/23 22:35 108 H 184/129 H 01/05/23 22:22 90 01/05/23 22:20 110 H 20 152/103 H 85 L O2 Del Method O2 Flow Rate 01/06/23 06:36 Nasal Cannula 2 01/06/23 05:36 Room Air 01/06/23 04:00 Room Air 01/06/23 03:56 Room Air 01/06/23 01:26 01/06/23 01:17 Nasal Cannula 2 01/05/23 22:50 01/06/23 00:31 01/06/23 00:29 01/05/23 23:34 Nasal Cannula 3 01/05/23 22:35 01/05/23 22:22 Nasal Cannula 3 01/05/23 22:20 Room Air Laboratory Results Cardiac Enzymes 01/05/23 01/05/23 01/05/23 Range/Units 18:33 18:33 19:55 AST 52 H (13-39) U/L Troponin I High Sens 197.6 H* 179.5 H* (0-20) pg/ml B-Natriuretic Peptide 1585 H (0-100) pg/ml 01/06/23 Range/Units 04:26 AST 58 H (13-39) U/L Troponin I High Sens (0-20) pg/ml B-Natriuretic Peptide (0-100) pg/ml Coagulation 01/05/23 01/05/23 Range/Units 18:33 18:33 PT 12.1 H (9.0-12.0) Seconds APTT 26.5 (21.0-31.0) Seconds B-Natriuretic Peptide 1585 H (0-100) pg/ml CBC 01/05/23 01/06/23 Range/Units 18:33 04:26 WBC 11.87 H 13.66 H (4.8-10.8) K/ul RBC 5.14 5.31 (4.70-6.10) M/uL Hgb 15.2 15.7 (14.0-18.0) g/dl Hct 44.6 45.6 (42.0-52.0) % Plt Count 297 308 (130-400) K/uL Neut # (Auto) 8.21 H 9.46 H (1.40-6.50) K/uL Lymph # (Auto) 2.57 3.03 (1.20-3.40) K/uL [place] # (Auto) 0.83 H 0.85 H (0.11-0.59) K/uL Eos # (Auto) 0.16 0.18 (0.00-0.50) K/uL Baso # (Auto) 0.06 0.07 (0.00-0.20) K/uL Comprehensive Metabolic Panel 01/05/23 01/06/23 Range/Units 18:33 04:26 Sodium 139 137 (136-145) mmol/L Potassium 4.1 3.8 (3.5-5.1) mmol/L Chloride 108 H 107 (98-107) mmol/L Carbon Dioxide 26 24 (21-32) mmol/L BUN 15 15 (6-23) mg/dl Creatinine 0.74 0.61 (0.6-1.4) mg/dl Glucose 138 H 146 H (70-99(Fasting)) mg/dl Calcium 9.5 9.3 (8.6-10.3) mg/dl AST 52 H 58 H (13-39) U/L ALT 106 H 113 H (7-52) U/L Alkaline Phosphatase 53 56 (34-104) U/L Total Protein 7.5 7.9 (6.0-8.3) gm/dl Albumin 3.7 3.9 (3.4-5.0) gm/dl Intake and Output 01/05/23 01/06/23 01/06/23 22:59 06:59 14:59 Intake Total 200 / 200 Output Total 550 / 550 Balance -350 / -350 Intake: IV 200 / 200 Doxycycline Hyclate 100 mg In 100 / 100 Dextrose 5% Mini-B 100 ml @ 50 mls/hr IV NOW STA Rx#:[id number] Magnesium Sulfate / D5w 1 gm In 100 / 100 100 ml @ 50 mls/hr IV ONE ONE Rx#:[id number] Output: Urine 550 / 550 Other: Weight 74 kg 74 kg Weight Measurement Method [facility] Diagnostic Findings Telemetry reviewed: Sinus tachycardia. No arrhythmias EKG on arrival: Sinus tachycardia with probable LVH with strain pattern, T wave inversion in lateral leads (significant artifact noted). Repeat EKG: Sinus tachycardia with Left axis deviation and probable LVH with ongoing t wave inversions in lateral leads Echocardiogram - pending Chest X-Ray 01/05/23 17:22 XR chest 1V not portable CLINICAL HISTORY: Chest pain, nonspecific TECHNIQUE: Single frontal radiograph of the chest was obtained. Comparison: None available at the time of this dictation. FINDINGS: No lines and tubes are seen. Cardiomegaly is noted. There is prominence and cephalization of the vasculature with Helder B lines seen. Superimposed mild alveolar edema cannot be entirely excluded. Possible mild left pleural effusion. IMPRESSION: Cardiomegaly with likely moderate pulmonary edema. ACT 112: Negative or not required by law. Electronically signed by: Tye Marquez M.D. 01/05/2023 6:10 PM Chest CTA 01/05/23 19:48 Exam(s): CTA CHEST IV Amt: 113ML OPTIRAY 320 EXAM: CT Angiography Chest With Intravenous Contrast CLINICAL HISTORY: Reason for exam: PE. TECHNIQUE: Axial computed tomographic angiography images of the chest with intravenous contrast. CTDI is 37 mGy and DLP is 919.12 mGy-cm. Automated exposure control was utilized for the study. A dose lowering technique was utilized adhering to the principles of ALARA. MIP reconstructed images were created and reviewed. COMPARISON: No relevant prior studies available. FINDINGS: Pulmonary arteries: Unremarkable. No acute pulmonary embolism. Aorta: Atherosclerotic changes of the aorta. No thoracic aortic aneurysm. Lungs: See below. Pleural space: Small RIGHT and trace LEFT pleural effusions. Mild pulmonary edema. Cardiomegaly. Findings are consistent with congestive heart failure. No pneumothorax. Heart: See above. Mediastinum: Prominent mediastinal and hilar lymphadenopathy which is limited in evaluation due to lack of contrast. If there is any history of malignancy, consider PET/CT scan for further evaluation. Bones/joints: Degenerative changes of the spine. No acute fracture. No dislocation. Soft tissues: Unremarkable. Lymph nodes: Unremarkable. No enlarged lymph nodes. IMPRESSION: 1. No acute pulmonary embolism. 2. Small RIGHT and trace LEFT pleural effusions. Mild pulmonary edema. Cardiomegaly. Findings are consistent with congestive heart failure. 3. Prominent mediastinal and hilar lymphadenopathy which is limited in evaluation due to lack of contrast. If there is any history of malignancy, consider PET/CT scan for further evaluation. Electronically signed by: Ghanshyam Amin MD 01/05/23 21:15 PM Medications Administered Current Inpatient Medications Acetaminophen (Acetaminophen 500 Mg Tab) 500 mg PO Q6H PRN PRN Reason: fever/pain Stop: 02/04/23 23:19 Doxycycline Hyclate (Doxycycline Hyclate 100 Mg Cap) 100 mg PO BID [facility] Stop: 01/13/23 08:59 Furosemide (Furosemide 40 Mg/4 Ml Vial) 40 mg IV BID [facility] Stop: 01/07/23 08:59 Hydroxyzine HCl (Hydroxyzine Hcl 10 Mg Tab) 10 mg PO QID PRN PRN Reason: Anxiety Stop: 02/04/23 23:19 Promethazine HCl 6.25 mg/ (Sodium Chloride) 50.25 mls @ 201 mls/hr IV Q6H PRN PRN Reason: Nausea And Vomiting Stop: 02/04/23 23:19 Metoprolol Tartrate (Metoprolol Tartrate 25 Mg Tab) 25 mg PO BID [facility] Stop: 02/05/23 08:59 Miscellaneous (Remove Nicoderm Patch) 1 each N/A DAILY@0859 [facility] Stop: 02/05/23 08:58 Nicotine (Nicotine 21 Mg/24 Hr Tdsy) 21 mg TD DAILY [facility] Stop: 02/05/23 08:59 Nitroglycerin (Nitroglycerin Sl 0.4 Mg/Tab Tab) 0.4 mg SL Q5M PRN PRN Reason: Chest Pain Stop: 02/05/23 02:01 Oxycodone HCl (Oxycodone Hcl Ir 5 Mg Tab (Immediate Release)) 5 mg PO Q4H PRN PRN Reason: Pain Stop: 01/19/23 23:19
[2023-01-06] MEDS ORDERED: METOPROLOL TARTRATE 25 MG TAB PO SCH (09:00)
[2023-01-06] MEDS ORDERED: FUROSEMIDE 40 MG/4 ML VIAL IV SCH (09:00)
[2023-01-06] MEDS ORDERED: NICOTINE 21 MG/24 HR TDSY TD SCH (09:00)
[2023-01-06] MEDS ORDERED: DOXYCYCLINE HYCLATE 100 MG CAP PO SCH (09:00)
[2023-01-06] MEDS ORDERED: POTASSIUM CHLORIDE CRTAB 20 MEQ TABCR PO SCH (09:30)
[2023-01-06] MEDS ORDERED: FUROSEMIDE 40 MG/4 ML VIAL IV ONE (09:35)
[2023-01-06] MEDS ORDERED: PERFLUTREN LIPID MICROSPHERE (DEFINITY) IV ONE (09:57)
[2023-01-06] MEDS ORDERED: FUROSEMIDE 200 MG in SODIUM CHLORIDE 0.9% 50 ML IV ONE (10:00)
[2023-01-06] MEDS ORDERED: FUROSEMIDE 100 MG in SODIUM CHLORIDE 0.9% 50 ML IV ONE (10:15)
[2023-01-06] MEDS ORDERED: FUROSEMIDE 40 MG/4 ML VIAL IV STA (10:15)
[2023-01-06 10:17] VITALS: TEMP 97.9; O2SAT 96
--- NOTE | 2023-01-06 10:29 | Critical Care Consultation ---
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 Cardiology team is working on transfer to [place] or likely Impella device and further CVICU monitoring. Patient currently on BiPAP given severe pulmonary edema. He is being given 200 mg of IV Lasix. He will remain under ICU monitoring pending transfer to [place]. We will maintain maps above 65. Thus far he is currently hypertensive and tolerating diuresis. No evidence of infectious causes at this time. Protecting his airway currently. Low threshold for intubation and mechanical ventilation if worsening respiratory status. Maintain n.p.o. status. Follow urine output closely. Rowland catheter placed. No significant issues from an endocrine standpoint. Maintain euglycemia. TSH unremarkable. SCDs for DVT prophylaxis. Care coordinated with ICU nurse, cardiology team and hospitalist service. CRITICAL CARE TIME - I have personally spent 47 minutes of critical care time in the direct management of this patient. This is a life/limb threatening event. This includes time spent evaluating patient, direct bedside care, chart review, placing orders, interpretation of diagnostic studies, discussion with consultants, iris ent, and family members, as well as other required patient management activities. This time is exclusive of all separately billable procedures, and teaching time and separate from and in addition to any other critical care service time. History of Present Illness Reason for Consultation: Congenital heart failure resulting in acute hypoxemic respiratory failure Attending Physician: Sterling Villegas MD History of Present Illness 47-year-old male who presented to the hospital 01/05/2023 due to increasing shortness of breath, orthopnea and lethargy. Due to increasing oxygen requirements and the need for BiPAP support. Patient underwent an echo which reveals an EF of likely less than 10%. He also has significant mitral regurgitation and aortic insufficiency which would preclude him from being able to get an IABP. I spoke personally with cardiology and they are working on getting him transferred to [place] for a possible Impella device. It is felt that he likely has noncompaction cardiomyopathy. History from the patient is difficult to elicit as he is quite agitated and short of breath. Respiratory rate is in the 30s. Systolics in the 150s. He is getting 200 mg of IV Lasix. Chest CTA personally reviewed from last night which reveals a small right pleural effusion and bilateral intralobular septal thickening with diffuse groundglass. There is hilar adenopathy noted as well. Paraseptal emphysema seen. No pulmonary embolism. Radiology interpretation noted as well. No white count seen on labs. Renal function adequate. LFTs with evidence of transaminitis. Pro-Francois negative. Allergies Allergy/AdvReac Type Severity Reaction Status Date / Time No Known Allergies Allergy Unverified 01/05/23 22:41 Home Medications Medication Instructions Recorded Confirmed Type acetaminophen 500 mg tablet 1,000 mg PO Q6H PRN Pain 01/05/23 01/05/23 History (Tylenol Extra Strength) cholecalciferol (vitamin D3) 25 0 mcg PO DAILY 01/05/23 01/05/23 History mcg (1,000 unit) tablet (Vitamin D3) ibuprofen 200 mg tablet 400 mg PO Q6H PRN Pain 01/05/23 01/05/23 History Patient History Medical History (Updated 01/06/23 @ 10:26 by Jaylan Anderson MD) Noncompaction cardiomyopathy Social History Smoking Status: Current every day smoker Tobacco Type: E-cigarettes / Vaping Hx Alcohol Use: No Hx Substance Use: Yes Last Used Substance: Days (ago) Preferred Language: Pashto Communication Ability: Effective Filler Shredder Required: No Beliefs That Will Affect Care: None Current Living Situation: Other Current Living Situation Comment: friend arie and her mother ' they are very nice to me' Other Information That Helps Us Care for You: No Feels Safe at Home: Yes Safety Concerns: Feels Safe At This Time Assistive Devices: None Review of Systems Review of Systems: All systems reviewed & are unremarkable except as noted in HPI & below Physical Exam Physical Exam: Constitutional: Patient appears to be of their stated age. Patient is in moderate distress. Eyes: Pupils are equal round and reactive to light. Conjunctivae are normal. Anicteric sclera. Ears nose, mouth and throat: Mallampati class 2. Normal posterior oropharynx. Uvula is midline. Neck: Trachea is midline. Visual inspection is normal. Respiratory: Mildly increased work of breathing. Diffuse crackles. Cardiovascular: Regular rate and rhythm. No murmurs. No edema. Gastrointestinal: Normal bowel sounds, soft, nontender and nondistended. No hepatosplenomegaly noted. Musculoskeletal: No cyanosis. Patient is able to move all extremities. Strength is 5 out of 5 in the upper and lower extremities. Skin: No rashes, warm dry and intact. Neurologic: No obvious focal neurological deficits seen. Psychiatric: Alert and oriented x3 with a euthymic affect. Results & Data Results & Data Vital Signs (Past 12 Hours) Vital Signs Temp Pulse Pulse Resp BP BP BP 01/06/23 09:45 104 H 37 H 01/06/23 10:00 105 H 31 H 152/95 H 01/06/23 09:00 105 H 32 H 151/97 H 01/06/23 08:00 36.6 C 102 H 32 H 142/84 H 01/06/23 06:36 36.5 C 103 H 23 151/86 H 01/06/23 05:36 109 H 24 148/102 H 01/06/23 04:00 108 H 18 01/06/23 03:56 01/06/23 01:26 106 H 01/06/23 01:17 101 H 01/05/23 22:50 95 H 01/06/23 00:31 105 H 30 H 131/76 01/06/23 00:29 109 H 23 148/95 H 01/05/23 23:34 94 H 20 01/05/23 22:35 108 H 184/129 H 01/05/23 22:22 Pulse Ox O2 Del Method O2 Flow Rate FiO2 01/06/23 09:45 98 30 01/06/23 10:00 96 BiPAP 40 01/06/23 09:00 97 Oxymask 15 01/06/23 08:00 95 Oxymask 15 01/06/23 06:36 96 Nasal Cannula 2 01/06/23 05:36 93 Room Air 01/06/23 04:00 96 Room Air 01/06/23 03:56 Room Air 01/06/23 01:26 01/06/23 01:17 94 Nasal Cannula 2 01/05/23 22:50 01/06/23 00:31 01/06/23 00:29 01/05/23 23:34 98 Nasal Cannula 3 01/05/23 22:35 01/05/23 22:22 90 Nasal Cannula 3 Coding Level of Care Code 07209 CRITICAL CARE 1ST 30-74M Diagnoses Acute on chronic heart failure with reduced ejection fraction and diastolic dysfunction I50.43 Hypoxia R09.02 Shortness of breath R06.02 Noncompaction cardiomyopathy I42.8
--- NOTE | 2023-01-06 11:04 | Hospitalist Progress Note ---
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 Small RIGHT and trace LEFT pleural effusions. Mild pulmonary edema.Cardiomegaly. Findings are consistent with congestive heart failure. Prominent mediastinal and hilar lymphadenopathy which is limited in evaluation due to lack of contrast. If there is any history of malignancy, consider PET/CT scan for further evaluation. --ECHO: Left ventricle is severely dilated. Left ventricle systolic function is severely reduced. EF less than 15%. Left ventricular trabeculations involving the mid and apical segments. In the setting of severe reduced LV systolic function. 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 Left atrium is severely dilated. Right ventricle is normal size. Right ventricle systolic function is moderately reduced. Moderate mitral regurgitation. Mitral regurgitation jet is posteriorly directed. Mild to moderate aortic regurgitation. Aortic regurgitation jet is eccentric and anteriorly directed. Mild tricuspid regurgitation. Estimated systolic pulmonary pressure is 47 mmHg. --BNP 1585 -- Continue BiPAP for respiratory support Received IV Lasix Given possible need for mechanical circulatory support, patient will be transferred to tertiary care facility for further management Appreciate cardiology and critical care input Mediastinal lymphadenopathy Incidental finding on CT Will need further evaluation as outpatient Prediabetes HbA1c 6.1 HTN ? Chronic Vs Situational Monitor Abnormal LFTs possibly from hepatic congestion Monitor LFTs Anxiety disorder Currently not on meds LUE osteomyelitis status post antibiotic Rx, patient unable to provide details ongoing tobacco abuse Counseled to quit smoking DVT Px: Lovenox SQ Code Status Full code Disposition [facility] Admission and Anticipated Discharge Date Admission Date: January 05, 2023 Subjective Patient is seen and examined at bedside States having dyspnea Placed on BiPAP Discussed with cardiology today Also discussed with critical care Poor historian Patient denies any chest pain, dizziness, nausea, vomiting Plan to be transferred to tertiary care facility today Review of Systems Review of Systems: All systems reviewed & are unremarkable except as noted in Subjective Physical Exam Physical Exam: Physical Exam: Vitals signs as noted above General Appearance:Moderately built and nourished, mild respiratory distress Head: normocephalic, Atraumatic Eyes: normal inspection, EOMI Neck: supple, Trachea midline Respiratory/Chest: Normal breath sounds, CTA, + accessory muscle use,+ tachypnea Cardiovascular: S1, S2, +murmur, + tachycardia Abdomen/GI:Soft, Non tender, Bowel sounds present Extremities/Musculoskeletal:normal inspection, no edema Neurologic/Psych:AAOX3, grossly no focal neurological deficits Skin: normal color, warm Results & Data Results & Data Vital Signs (Past 12 Hours) Vital Signs Temp Pulse Pulse Resp BP BP BP 01/06/23 09:45 104 H 37 H 01/06/23 10:00 105 H 31 H 152/95 H 01/06/23 09:00 105 H 32 H 151/97 H 01/06/23 08:00 36.6 C 102 H 32 H 142/84 H 01/06/23 06:36 36.5 C 103 H 23 151/86 H 01/06/23 05:36 109 H 24 148/102 H 01/06/23 04:00 108 H 18 01/06/23 03:56 01/06/23 01:26 106 H 01/06/23 01:17 101 H 01/06/23 00:31 105 H 30 H 131/76 01/06/23 00:29 109 H 23 148/95 H 01/05/23 23:34 94 H 20 Pulse Ox O2 Del Method O2 Flow Rate FiO2 01/06/23 09:45 98 30 01/06/23 10:00 96 BiPAP 40 01/06/23 09:00 97 Oxymask 15 01/06/23 08:00 95 Oxymask 15 01/06/23 06:36 96 Nasal Cannula 2 01/06/23 05:36 93 Room Air 01/06/23 04:00 96 Room Air 01/06/23 03:56 Room Air 01/06/23 01:26 01/06/23 01:17 94 Nasal Cannula 2 01/06/23 00:31 01/06/23 00:29 01/05/23 23:34 98 Nasal Cannula 3
[2023-01-06 12:32] VITALS: BP 136/84; PULSE 99; RESP 28
--- NOTE | 2023-01-06 13:12 | Electrocardiogram Report ---
Test Reason : Blood Pressure : / mmHG Vent. Rate : 112 BPM Atrial Rate : 112 BPM P-R Int : 154 ms QRS Dur : 104 ms QT Int : 336 ms P-R-T Axes : 032 -18 137 degrees QTc Int : 458 ms Sinus tachycardia Left ventricular hypertrophy with repolarization abnormality Abnormal ECG No previous ECGs available Confirmed by Gordon Brock ([id number]) on 01/06/2023 1:12:10 PM Referred By: REFERRED SELF Confirmed By:Gordon Brock
--- NOTE | 2023-01-06 13:12 | Electrocardiogram Report ---
Test Reason : Blood Pressure : / mmHG Vent. Rate : 120 BPM Atrial Rate : 120 BPM P-R Int : 142 ms QRS Dur : 114 ms QT Int : 332 ms P-R-T Axes : 041 -26 124 degrees QTc Int : 469 ms Sinus tachycardia Left ventricular hypertrophy with repolarization abnormality Abnormal ECG When compared with ECG of 05-JAN-2023 18:30, No significant change was found Confirmed by Gordon Brock ([id number]) on 01/06/2023 1:12:32 PM Referred By: REFERRED SELF Confirmed By:Gordon Brock
--- NOTE | 2023-01-06 13:13 | Electrocardiogram Report ---
Test Reason : Blood Pressure : / mmHG Vent. Rate : 107 BPM Atrial Rate : 107 BPM P-R Int : 152 ms QRS Dur : 122 ms QT Int : 370 ms P-R-T Axes : 030 -30 127 degrees QTc Int : 493 ms Sinus tachycardia Left ventricular hypertrophy with repolarization abnormality Abnormal ECG When compared with ECG of 05-JAN-2023 19:45, No significant change was found Confirmed by Gordon Brock ([id number]) on 01/06/2023 1:12:53 PM Referred By: REFERRED SELF Confirmed By:Gordon Brock
--- NOTE | 2023-01-06 16:40 | Discharge Summary ---
Date of Service January 06, 2023 Admission HPI Per Admitting Provider History obtained from patient and records. Medical history significant for congenital heart disease status post surgery, anxiety disorder, LUE osteomyelitis status post antibiotic Rx, ongoing tobacco abuse. 2 weeks history of shortness of breath, fluid retention, orthopnea symptoms. Junky cough symptoms. Not sure about sick contacts, has not received COVID-19 vaccination. Denies aspiration. Chest pain from pounding on his chest. Achy abdominal pain without constipation/diarrhea symptoms. Denies recent EtOH intake Denies headache symptoms. IV Lasix administered at the ER for CHF. Lowest O2 sats of 85 on room air documented at the ER. 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 Principal Diagnosis Acute hypoxic respiratory failure Acute on chronic heart failure with reduced ejection fraction and diastolic dysfunction Possible bronchitis Mediastinal lymphadenopathy Prediabetes Discharge Data Allergies Allergy/AdvReac Type Severity Reaction Status Date / Time No Known Allergies Allergy Unverified 01/05/23 22:41 Consultations 01/05/23 21:34 ED Decision to Admit Stat 01/06/23 02:02 Consult Cardiology Routine 01/06/23 10:03 Consult Sap Ppm Consultant Routine Procedures Performed Laboratory Results WBC 13.66 K/ul (4.8-10.8) H 01/06/23 04:26 RBC 5.31 M/uL (4.70-6.10) 01/06/23 04:26 Hgb 15.7 g/dl (14.0-18.0) 01/06/23 04:26 Hct 45.6 % (42.0-52.0) 01/06/23 04:26 MCV 85.9 fL (80.0-100.0) 01/06/23 04:26 MCH 29.6 pg (25.0-34.0) 01/06/23 04:26 MCHC 34.4 g/dL (32.0-36.0) 01/06/23 04:26 RDW Std Deviation 41.1 fL (36.4-46.3) 01/06/23 04:26 RDW Coeff of Gil 13.3 % (11.5-14.5) 01/06/23 04:26 Plt Count 308 K/uL (130-400) 01/06/23 04:26 MPV 10.8 fL (9.4-12.4) 01/06/23 04:26 Immature Gran % (Auto) 0.5 % 01/06/23 04:26 Neut % (Auto) 69.3 % 01/06/23 04:26 Lymph % (Auto) 22.2 % 01/06/23 04:26 Rose[place] % (Auto) 6.2 % 01/06/23 04:26 Eos % (Auto) 1.3 % 01/06/23 04:26 Baso % (Auto) 0.5 % 01/06/23 04:26 Neut # (Auto) 9.46 K/uL (1.40-6.50) H 01/06/23 04:26 Lymph # (Auto) 3.03 K/uL (1.20-3.40) 01/06/23 04:26 Roseau # (Auto) 0.85 K/uL (0.11-0.59) H 01/06/23 04:26 Eos # (Auto) 0.18 K/uL (0.00-0.50) 01/06/23 04:26 Baso # (Auto) 0.07 K/uL (0.00-0.20) 01/06/23 04:26 Immature Gran # (Auto) 0.07 K/uL (0.01-0.20) 01/06/23 04:26 PT 12.1 Seconds (9.0-12.0) H 01/05/23 18:33 INR 1.1 (0.9-1.1) 01/05/23 18:33 APTT 26.5 Seconds (21.0-31.0) 01/05/23 18:33 PTT Ratio 0.9 01/05/23 18:33 ABG pH 7.43 (7.35-7.45) 01/05/23 22:42 ABG pCO2 35 mmHg (35-46) 01/05/23 22:42 ABG pO2 86 mmHg (80-95) 01/05/23 22:42 ABG HCO3 23 mmol/L (19-24) 01/05/23 22:42 ABG O2 Saturation 98.2 % (90-95) H 01/05/23 22:42 ABG Base Excess -0.6 mEq/L (-9-1.8) 01/05/23 22:42 Jacob Test Pos (Pos) 01/05/23 22:42 Oxygen Given RA 01/05/23 22:42 Sodium 137 mmol/L (136-145) 01/06/23 04:26 Potassium 3.8 mmol/L (3.5-5.1) 01/06/23 04:26 Chloride 107 mmol/L (98-107) 01/06/23 04:26 Carbon Dioxide 24 mmol/L (21-32) 01/06/23 04:26 Anion Gap 6 (3-11) 01/06/23 04:26 BUN 15 mg/dl (6-23) 01/06/23 04:26 Creatinine 0.61 mg/dl (0.6-1.4) 01/06/23 04:26 Est Cr Clr Drug Dosing 153.3 ml/min 01/06/23 04:26 Est GFR ( Amer) 135.9 ml/min 01/06/23 04:26 Est GFR (Non-Af Amer) 117.3 ml/min 01/06/23 04:26 BUN/Creatinine Ratio 24.6 (10-20) H 01/06/23 04:26 Glucose 146 mg/dl (70-99(Fasting)) H 01/06/23 04:26 Estimat Average Glucose 128 mg/dl 01/05/23 18:33 Hemoglobin A1c 6.1 % (4.5-5.6) H 01/05/23 18:33 Lactate 1.1 mmol/L (0.4-2.0) 01/06/23 09:58 Calcium 9.3 mg/dl (8.6-10.3) 01/06/23 04:26 Magnesium 1.9 mg/dl (1.7-2.4) 01/05/23 18:33 Total Bilirubin 0.8 mg/dl (0.2-1.0) 01/06/23 04:26 AST 58 U/L (13-39) H 01/06/23 04:26 ALT 113 U/L (7-52) H 01/06/23 04:26 Alkaline Phosphatase 56 U/L (34-104) 01/06/23 04:26 Ammonia 46.0 umol/L (18-72) 01/06/23 04:26 Troponin I High Sens 179.5 pg/ml (0-20) H* 01/05/23 19:55 B-Natriuretic Peptide 1585 pg/ml (0-100) H 01/05/23 18:33 Total Protein 7.9 gm/dl (6.0-8.3) 01/06/23 04:26 Albumin 3.9 gm/dl (3.4-5.0) 01/06/23 04:26 Globulin 4.0 gm/dl (2.5-4.0) 01/06/23 04:26 Albumin/Globulin Ratio 1.0 (0.9-2) 01/06/23 04:26 Lipase 15 U/L (11-82) 01/05/23 19:55 Procalcitonin < 0.05 ng/ml (0-0.5) 01/05/23 23:35 TSH 1.339 uIu/ml (0.300-4.500) 01/05/23 18:33 Urine Color Yellow 01/05/23 23:30 Urine Appearance Clear (Clear) 01/05/23 23:30 Urine pH 5.5 (4.5-7.5) 01/05/23 23:30 Ur Specific [place] 1.024 (1.000-1.030) 01/05/23 23:30 Urine Protein Negative (Negative) 01/05/23 23:30 Urine Glucose (UA) Negative (Negative) 01/05/23 23:30 Urine Ketones Negative (Negative) 01/05/23 23:30 Urine Blood Negative (Negative) 01/05/23 23:30 Urine Nitrite Negative (Negative) 01/05/23 23:30 Urine Bilirubin Negative (Negative) 01/05/23 23:30 Urine Urobilinogen Negative (Negative) 01/05/23 23:30 Ur Leukocyte Esterase Negative (Negative) 01/05/23 23:30 Nasal Screen MRSA (PCR) Negative (Negative) 01/06/23 05:30 Urine Opiates Screen Neg (Neg) 01/05/23 23:30 Ur Methadone, Qual Neg (Neg) 01/05/23 23:30 Urine Barbiturates Neg (Neg) 01/05/23 23:30 Ur Phencyclidine (PCP) Neg (Neg) 01/05/23 23:30 U Amphetamin/Meth Scrn Neg (Neg) 01/05/23 23:30 MDMA (Ecstasy) Screen Neg (Neg) 01/05/23 23:30 U Benzodiazepines Scrn Neg (Neg) 01/05/23 23:30 Ur Cocaine Metabolite Neg (Neg) 01/05/23 23:30 U Marijuana (THC) Screen Pos (Neg) H 01/05/23 23:30 Ethyl Alcohol mg/dL < 10.0 mg/dl (<10.0) 01/05/23 23:33 SARS-CoV-2 (PCR) NEGATIVE (Negative) 01/05/23 17:23 Influenza Type A (PCR) Negative (Neg) 01/05/23 17:23 Influenza Type B (PCR) Negative (Neg) 01/05/23 17:23 RSV (RT-PCR) Negative (Neg) 01/05/23 17:23 Impressions Chest X-Ray 01/05/23 17:22 XR chest 1V not portable CLINICAL HISTORY: Chest pain, nonspecific TECHNIQUE: Single frontal radiograph of the chest was obtained. Comparison: None available at the time of this dictation. FINDINGS: No lines and tubes are seen. Cardiomegaly is noted. There is prominence and cephalization of the vasculature with Helder B lines seen. Superimposed mild alveolar edema cannot be entirely excluded. Possible mild left pleural effusion. IMPRESSION: Cardiomegaly with likely moderate pulmonary edema. ACT 112: Negative or not required by law. Electronically signed by: Tye Marquez M.D. 01/05/2023 6:10 PM Chest CTA 01/05/23 19:48 Exam(s): CTA CHEST IV Amt: 113ML OPTIRAY 320 EXAM: CT Angiography Chest With Intravenous Contrast CLINICAL HISTORY: Reason for exam: PE. TECHNIQUE: Axial computed tomographic angiography images of the chest with intravenous contrast. CTDI is 37 mGy and DLP is 919.12 mGy-cm. Automated exposure control was utilized for the study. A dose lowering technique was utilized adhering to the principles of ALARA. MIP reconstructed images were created and reviewed. COMPARISON: No relevant prior studies available. FINDINGS: Pulmonary arteries: Unremarkable. No acute pulmonary embolism. Aorta: Atherosclerotic changes of the aorta. No thoracic aortic aneurysm. Lungs: See below. Pleural space: Small RIGHT and trace LEFT pleural effusions. Mild pulmonary edema. Cardiomegaly. Findings are consistent with congestive heart failure. No pneumothorax. Heart: See above. Mediastinum: Prominent mediastinal and hilar lymphadenopathy which is limited in evaluation due to lack of contrast. If there is any history of malignancy, consider PET/CT scan for further evaluation. Bones/joints: Degenerative changes of the spine. No acute fracture. No dislocation. Soft tissues: Unremarkable. Lymph nodes: Unremarkable. No enlarged lymph nodes. IMPRESSION: 1. No acute pulmonary embolism. 2. Small RIGHT and trace LEFT pleural effusions. Mild pulmonary edema. Cardiomegaly. Findings are consistent with congestive heart failure. 3. Prominent mediastinal and hilar lymphadenopathy which is limited in evaluation due to lack of contrast. If there is any history of malignancy, consider PET/CT scan for further evaluation. 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 Small RIGHT and trace LEFT pleural effusions. Mild pulmonary edema.Cardiomegaly. Findings are consistent with congestive heart failure. Prominent mediastinal and hilar lymphadenopathy which is limited in evaluation due to lack of contrast. If there is any history of malignancy, consider PET/CT scan for further evaluation. --ECHO: Left ventricle is severely dilated. Left ventricle systolic function is severely reduced. EF less than 15%. Left ventricular trabeculations involving the mid and apical segments. In the setting of severe reduced LV systolic function. 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 Left atrium is severely dilated. Right ventricle is normal size. Right ventricle systolic function is moderately reduced. Moderate mitral regurgitation. Mitral regurgitation jet is posteriorly directed. Mild to moderate aortic regurgitation. Aortic regurgitation jet is eccentric and anteriorly directed. Mild tricuspid regurgitation. Estimated systolic pulmonary pressure is 47 mmHg. --BNP 1585 -- Continue BiPAP for respiratory support Received IV Lasix Given possible need for mechanical circulatory support, patient will be transferred to tertiary care facility for further management Appreciate cardiology and critical care input Mediastinal lymphadenopathy Incidental finding on CT Will need further evaluation as outpatient Prediabetes HbA1c 6.1 HTN ? Chronic Vs Situational Monitor Abnormal LFTs possibly from hepatic congestion Monitor LFTs Anxiety disorder Currently not on meds LUE osteomyelitis status post antibiotic Rx, patient unable to provide details ongoing tobacco abuse Counseled to quit smoking DVT Px: Lovenox SQ Code Status Full code Disposition EstebanAftab Total Time Total Time Spent Total Time Spent (In Minutes): 65 minutes Discharge Plan Discharge Items Patient Disposition: Transfer Acute Care Hospital Reason For Visit: RESP FAILURE Discharge Diagnosis: LV Noncompaction Cardiomyopathy Activity: Per Instructions section Exercise/Sports: Wait until after follow-up appointment Non-emergency contact: Primary Care Provider and Geometrician Call non-emergency contact if: you have any medication questions, your symptoms worsen, your pain is concerning for you and you have a fever Follow-up/Referrals: PCP,NO [Primary Care Provider] - Diet: Heart Healthy Addtl Attending Provider Instructions: Follow up with Dr.Eva Sanders at [facility] at [facility] for further management Addtl Financial Services Representative Provider Instructions: Date of Service: January 06, 2023 Current Inpatient Medications Acetaminophen (Acetaminophen 500 Mg Tab) 500 mg PO Q6H PRN PRN Reason: fever/pain Stop: 02/04/23 23:19 Doxycycline Hyclate (Doxycycline Hyclate 100 Mg Cap) 100 mg PO BID [facility] Stop: 01/13/23 08:59 Last Admin: 01/06/23 09:41 Dose: 100 mg Furosemide (Furosemide 40 Mg/4 Ml Vial) 40 mg IV BID [facility] Stop: 01/07/23 08:59 Last Admin: 01/06/23 09:58 Dose: Not Given Hydroxyzine HCl (Hydroxyzine Hcl 10 Mg Tab) 10 mg PO QID PRN PRN Reason: Anxiety Stop: 02/04/23 23:19 Promethazine HCl 6.25 mg/ (Sodium Chloride) 50.25 mls @ 201 mls/hr IV Q6H PRN PRN Reason: Nausea And Vomiting Stop: 02/04/23 23:19 Metoprolol Tartrate (Metoprolol Tartrate 25 Mg Tab) 25 mg PO BID [facility] Stop: 02/05/23 08:59 Last Admin: 01/06/23 09:41 Dose: 25 mg Miscellaneous (Remove Nicoderm Patch) 1 each N/A DAILY@0859 [facility] Stop: 02/05/23 08:58 Last Admin: 01/06/23 09:42 Dose: 1 each Nicotine (Nicotine 21 Mg/24 Hr Tdsy) 21 mg TD DAILY AAMIR Stop: 02/05/23 08:59 Last Admin: 01/06/23 09:36 Dose: 21 mg Nitroglycerin (Nitroglycerin Sl 0.4 Mg/Tab Tab) 0.4 mg SL Q5M PRN PRN Reason: Chest Pain Stop: 02/05/23 02:01 Oxycodone HCl (Oxycodone Hcl Ir 5 Mg Tab (Immediate Release)) 5 mg PO Q4H PRN PRN Reason: Pain Stop: 01/19/23 23:19 Potassium Chloride (Potassium Chloride Crtab 20 Meq Tabcr) 40 meq PO QAM AAMIR Stop: 02/05/23 09:29 Last Admin: 01/06/23 09:36 Dose: 40 meq Pending Studies at Discharge: No Stand-Alone Forms: [facility] Skilled Items Patient informed of condition?: Yes DNR: No Discharge Level of Care: Other Communicable Disease: No Discharge Prognosis: Stable Lines: None Urinary Catheter: No Medications and DC Order Prescriptions: Continued acetaminophen [Tylenol Extra Strength] 500 mg Tablet 1,000 mg PO Q6H PRN (Reason: Pain) ibuprofen 200 mg Tablet 400 mg PO Q6H PRN (Reason: Pain) cholecalciferol (vitamin D3) [Vitamin D3] 25 mcg (1,000 unit) Tablet 0 mcg PO DAILY Discharge Orders: Discharge Order (Routine); Ordered 01/06/23 Ordered By: Sterling Meehan/Other Patient Handouts: A1C Admission Data Admit Date/Time: 01/05/23 23:16 Attending Provider: Sterling Villegas Admit Provider: Saul Barnett Primary Care Provider: PCP,NO Other Providers: Saul Barnett ; Claire Iyer ; Cortes Buckley ; Rodney Will ; Travon Ferrer ; Rosalio Can ; John Fry ; Ana Luisa Fang ; Daniella Muñiz ; Claire Floyd ; Jay Ramirez ; Dave Polk ; Eula Marcelino ; Hilary Joshi ; Mally Leonardo ; Chuy Hendrix ; Jaylan Anderson
[2023-01-08 10:12] LABS: HBSAG NON-REACTIVE (NON-REACTIVE); Hepatitis A Antibody IgM NON-REACTIVE (NON-REACTIVE); Hepatitis B Core Antibody IgM NON-REACTIVE (NON-REACTIVE)
[2023-01-09 10:43] LABS: Marijuana Quant, GCMS Urine 285 ng/mL (<5)
[2023-01-10 08:34] LABS: Hepatitis C Vira RNA (Log) PCR 6.55 Log IU/mL (NOT DETECTED); Hepatitis C Viral RNA by PCR 3540000 IU/mL (NOT DETECTED)
== END 2023-01-06 11:34 | disposition short-term general hospital (02) | DRG 291 ==
LOC: ED 16:53 → EDINP 23:16 → 1E 01-06 02:02
DX: I42.8 Other cardiomyopathies; J96.01 Acute respiratory failure with hypoxia; I11.0 Hypertensive heart disease with heart failure; F17.290 Nicotine dependence, other tobacco product, uncomplicated; R59.0 Localized enlarged lymph nodes; R73.03 Prediabetes; I50.33 Acute on chronic diastolic (congestive) heart failure